=== PATIENT | female | born 1945 | race Caucasian/White ===

== ENCOUNTER 2022-08-05 18:27 | Emergency (ER) | payer OTHER, SELFPAY ==
[2022-08-05 18:37] VITALS: BP 176/128; PULSE 93; O2SAT 99
[2022-08-05 20:35] VITALS: BP 165/96; PULSE 71; RESP 17; O2SAT 94; BMI 17.2
== END 2022-08-06 00:22 | disposition left against medical advice (07) ==
PROVIDERS: Emergency Provider Emergency Medicine
DX: G89.4 Chronic pain syndrome (principal)
CPT/HCPCS: 99281

== ENCOUNTER → 2022-08-28 12:42 | Outpatient (BNVA) | payer OTHER, MEDICAID, SELFPAY | PROVIDERS: Visit Provider Anesthesiology | DX: G89.4 Chronic pain syndrome (principal); T85.610A Breakdown (mechanical) of cranial or spinal infusion catheter, initial encounter; Z96.89 Presence of other specified functional implants | CPT/HCPCS: 99202 ==

== ENCOUNTER 2022-09-26 17:28 | Observation (INO) | payer OTHER, MEDICAID, SELFPAY ==
[2022-09-26] VITALS (7 sets, daily range): BP systolic 157–173; BP diastolic 83–90; PULSE 57–71; RESP 16–18; TEMP 36.2–37.2; O2SAT 95–99; BMI 17.6
--- NOTE | ~2022-09-26 | FL_ITS ---
EXAMINATION: XR BARIUM SWALLOW CLINICAL INFORMATION: Food impaction COMPARISON: None TECHNIQUE: Modified barium swallow with speech pathologist. FINDINGS: Patient only ate consistencies of thin liquid to applesauce. Patient would not take solid food or barium-coated cookie or tablet. There was no evidence of nasopharyngeal reflux or tracheal aspiration. No laryngeal penetration was identified. FLUOROSCOPY TIME: 2.8 minutes DOSE AREA PRODUCT: 2.527 Gy-cm2 (ramos-centimeter squared) FL/FL barium swallow modified IMPRESSION: Limited modified barium swallow as described without evidence of aspiration or laryngeal penetration.
--- NOTE | ~2022-09-26 | FL_ITS ---
EXAMINATION: FL BARIUM SWALLOW CLINICAL INFORMATION: Motility study. COMPARISON: Modified barium swallow of same day. TECHNIQUE: Limited Barium swallow examination is performed using fluoroscopic evaluation in addition to multiple fluoroscopic spot views. The patient is imaged supine and is unable to cooperate with any other physicians due to severe back pain. Fluoroscopy Time: 1.1 minutes. DAP: 2.270 Gycm2. Images: 18. FINDINGS: Patient swallowed thin barium. There is hypomotility of the esophagus. No obstruction is identified with barium reaching the stomach. There are some tertiary contractions noted. It is difficult to evaluate for a stricture without giving a barium tablet or solid material to ingest. FL/FL barium swallow IMPRESSION: Mild dysmotility. Patency of barium to the stomach but unable to determine if there may be a stricture at the gastroesophageal junction.
--- NOTE | 2022-09-26 17:55 | PC.NURSE ---
Pt aox4. Breaths are even and unlabored. HR WNL. Reports esophageal pain after vomiting a cheeseburger yesterday. Pt is unable to swallow a sip of water without any pain. Intermittent vomiting clear liquid. MD aware.
--- OUTSIDE RECORDS SUMMARY | 2022-09-26 19:01 | XMS_ITS | Continuity of Care Document ---
:1945 Author Organization [address], [address] [place] [address]- Care Team Providers Name Role Phone Emir Cardoso DO Primary Care Physician [place] [facility] [place](s): 08/06/22 - 09/05/[address], [address] [place] [address]- Allergies, Adverse Reactions, Alerts Substance Reaction Severity Status sulfADIAZINE Active beta blockers Active Ambien Active Tylenol Itchy Active Adhesive Bandage Active Medications albuterol 0.083% inhalation solution 3 mL = 2.5 mg, Inhalation, Every 6 hours, # 120 each, 0 Refills, Maintenance, 06/11/18 17:38:32 EDT,Solution Start Date: 06/11/18 Status: OrderedAll Day Allergy 10 mg oral tablet 1 tablet = 10 mg, By Mouth, Daily, PRN for allergy symptoms, # 10 tablet, 0 Refills, Maintenance, 05/09/21 11:43:00 EDT, Tablet, Partial fill upon patient request if the prescription is for a schedule II opioid drug. Start Date: 05/09/21 Status: Orderedbaclofen 10 mg oral tablet 10 mg, 1, tablet, By Mouth, 2 times a day, # 270 tablet, Refills 0, Maintenance, 05/09/21 11:41:00 EDT, Partial fill upon patient request if the prescription is for a schedule II opioid drug. Start Date: 05/09/21 Status: Orderedbisacodyl 5 mg oral delayed release tablet 2 tablet = 10 mg, By Mouth, Daily, PRN for constipation, # 20 tablet, 0 Refills, Maintenance, 05/09/21 11:25:00 EDT, EC Tablet, Partial fill upon patient request if the prescription is for a schedule II opioid drug. Start Date: 05/09/21 Status: Orderedbisacodyl 5 mg oral delayed release tablet 2 tablet = 10 mg, By Mouth, Daily, PRN for constipation, # 20 tablet, 0 Refills, Maintenance, 05/09/21 11:41:00 EDT, EC Tablet, Partial fill upon patient request if the prescription is for a schedule II opioid drug. Start Date: 05/09/21 Status: OrderedcloNIDine 0.1 mg oral tablet 0.1 mg, 1, tablet, By Mouth, 2 times a day, # 180 tablet, Refills 0, Maintenance, 05/09/21 11:44:00 EDT, Partial fill upon patient request if the prescription is for a schedule II opioid drug. Start Date: 05/09/21 Status: Orderedfurosemide 40 mg oral tablet 1 tablet = 40 mg, By Mouth, Daily, # 30 tablet, 0 Refills, Maintenance, 09/18/15 9:42:33 EDT, Tablet Start Date: 09/18/15 Status: Orderedibuprofen 600 mg oral tablet 600 mg, 1, tablet, By Mouth, 4 times a day, # 120 tablet, Refills 0, Maintenance, 03/18/21 22:17:00 EDT, Partial fill upon patient request if the prescription is for a schedule II opioid drug. Start Date: 03/18/21 Status: OrderedImitrex 100 mg oral tablet 1 tablet = 100 mg, By Mouth, Daily, PRN for migraine headache, may repeat dose after 2 hours up to amaximum of 2, # 18 tablet, 0 Refills, Maintenance, 03/18/21 22:17:00 EDT, Tablet, Partial fill upon patient request if the prescription is for a sched... Start Date: 03/18/21 Status: Orderedlidocaine 5% topical film 1 patch, Topically, Daily, # 30 patch, 0 Refills, Maintenance, 05/10/21 17:40:00 EDT, Patch, JARRET Goodmanamp; [facility], Please get patient HEAT patch. Partial fill upon patient request if the prescription is for a schedule II opioid drug., 1 patch Topica... Start Date: 05/10/21 Stop Date: 06/09/21 Status: Orderedondansetron 4 mg oral tablet, disintegrating 1 tablet = 4 mg, By Mouth, Once, PRN as needed for nausea/vomiting, 0 Refills, Maintenance, 05/09/2111:44:00 EDT, DIS Tablet, Partial fill upon patient request if the prescription is for a schedule IIopioid drug. Start Date: 05/09/21 Status: OrderedProAir HFA 90 mcg/inh inhalation aerosol with adapter 2, puffs, Inhalation, Every 4 hours, PRN, # 8.5 Gm, Refills 0, Maintenance, 06/11/18 17:48:48 EDT, Aerosol Start Date: 06/11/18 Status: OrderedSensipar 30 mg oral tablet 1 tablet = 30 mg, By Mouth, Daily, # 30 tablet, 0 Refills, Maintenance, 05/09/21 11:44:00 EDT, Tablet, Partial fill upon patient request if the prescription is for a schedule II opioid drug. Start Date: 05/09/21 Status: OrderedtraZODone 50 mg oral tablet 100 mg, 2, tablet, By Mouth, Daily at bedtime, # 30 tablet, Refills 0, Maintenance, 05/09/21 11:44:00 EDT, Partial fill upon patient request if the prescription is for a schedule II opioid drug. Start Date: 05/09/21 Status: OrderedVitamin D3 2000 intl units oral capsule 1 capsule = 2,000 International_Units, By Mouth, Daily, # 60 capsule, 0 Refills, Maintenance, 05/09/21 11:44:00 EDT, Capsule, Partial fill upon patient request if the prescription is for a schedule II opioid drug. Start Date: 05/09/21 Status: Ordered Social History Social History Type Response Tobacco Use: 4 or less cigarettes(le ss than 1/4 pack)/day in last 30 days. Sex Patient Care team information PersonnelName: Emir Cardoso DO Address: Address: [address] [place] [address]
--- OUTSIDE RECORDS SUMMARY | 2022-09-26 19:01 | XMS_ITS | Continuity of Care Document ---
:1945 Author Organization [address], [address] [place] [address]- Care Team Providers Name Role Phone Emir Cardoso DO Primary Care Physician [place] [facility] [facility] [place] [id number] Date(s): 04/10/20 - 05/10/[address], [address] [place] [address]- [facility] Attending Physician: Zain Lozada Admitting Physician: Admtr, Zain Referring Physician: Admtr, Ar8 Allergies, Adverse Reactions, Alerts Substance Reaction Severity Status sulfADIAZINE Active beta blockers Active Ambien Active Adhesive Bandage Active Medications albuterol 0.083% inhalation solution 3 mL = 2.5 mg, Inhalation, Every 6 hours, # 120 each, 0 Refills, Maintenance, 06/11/18 17:38:32 EDT,Solution Start Date: 06/11/18 Status: Orderedaspirin 81 mg oral tablet 1 tablet = 81 mg, By Mouth, Daily, 0 Refills, Maintenance, 09/18/15 9:40:50 Start Date: 09/18/15 Status: Orderedaspirin 81 mg oral tablet 1 tablet = 81 mg, By Mouth, Daily, # 30 tablet, 0 Refills, Maintenance, 03/24/18 0:18:40 EDT, Tablet Start Date: 03/24/18 Status: OrderedBenadryl Children's Allergy 12.5 mg/5 mL oral liquid 5 mL = 12.5 mg, By Mouth, 3 times a day, 0 Refills, Maintenance, 06/11/18 17:40:08 EDT Start Date: 06/11/18 Status: Orderedbisacodyl 5 mg oral delayed release tablet 2 tablet = 10 mg, By Mouth, Daily, PRN for constipation, # 20 tablet, 0 Refills, Maintenance, 06/11/18 17:45:18 EDT, EC Tablet Start Date: 06/11/18 Status: OrderedCarafate 1 gm oral tablet 1 Gm, 1, tablet, By Mouth, 4 times a day, # 56 tablet, Refills 0, Tot. Refills 0, Maintenance, 10/04/19 23:18:34 EST, Print Requisition Start Date: 10/04/19 Stop Date: 10/18/19 Status: OrderedCymbalta Capsule By Mouth, Daily, 0 Refills, Maintenance, 09/18/15 9:41:36 Start Date: 09/18/15 Status: Orderedfurosemide 40 mg oral tablet 1 tablet = 40 mg, By Mouth, Daily, # 30 tablet, 0 Refills, Maintenance, 09/18/15 9:42:33, Tablet Start Date: 09/18/15 Status: OrderedHydroCORTisone 1% In Absorbase 1% ointment 1 application, Topically, 2 times a day, # 25 Gm, 0 Refills, Maintenance, 06/11/18 17:47:16 EDT, Ointment Start Date: 06/11/18 Status: Orderedibuprofen 800 mg oral tablet 1 tablet = 800 mg, By Mouth, 3 times a day, # 90 tablet, 0 Refills, Maintenance, 09/18/15 9:41:17, Tablet Start Date: 09/18/15 Status: OrderedLactulose PRN as needed for constipation, 0 Refills, Maintenance, 09/18/15 9:42:17 Start Date: 09/18/15 Status: OrderedLyrica 200 mg oral capsule 1 capsule = 200 mg, By Mouth, 2 times a day, 0 Refills, Maintenance, 06/11/18 17:47:58 EDT, Capsule Start Date: 06/11/18 Status: Orderedomeprazole 40 mg oral enteric coated capsule 1 capsule = 40 mg, By Mouth, Daily, # 30 capsule, 0 Refills, Maintenance, 10/04/19 23:18:25 EST, EC Capsule Start Date: 10/04/19 Stop Date: 11/03/19 Status: OrderedPantoprazole Daily, 0 Refills, Maintenance, 09/18/15 9:57:53 Start Date: 09/18/15 Status: OrderedProAir HFA 90 mcg/inh inhalation aerosol with adapter 2, puffs, Inhalation, Every 4 hours, PRN, # 8.5 Gm, Refills 0, Maintenance, 06/11/18 17:48:48 EDT, Aerosol Start Date: 06/11/18 Status: OrderedSenna By Mouth, 0 Refills, Maintenance, 09/18/15 9:42:08 Start Date: 09/18/15 Status: OrderedSensipar 90 mg oral tablet 1 tablet = 90 mg, By Mouth, Daily, with food, # 30 tablet, 0 Refills, Maintenance, 06/11/18 17:49:23EDT, Tablet Start Date: 06/11/18 Status: OrderedSingulair 10 mg oral tablet 10 mg, 1, tablet, By Mouth, Daily in PM, # 30 tablet, Refills 0, Maintenance, 06/11/18 17:50:37 EDT Start Date: 06/11/18 Status: OrderedtraZODone 50 mg oral tablet 1.5 tablet = 75 mg, By Mouth, Daily at bedtime, 0 Refills, Maintenance, 09/18/15 9:45:45 Start Date: 09/18/15 Status: OrderedVitamin D3 2000 intl units oral capsule 1 capsule = 2,000 International_Units, By Mouth, Daily, 0 Refills, Maintenance, 06/11/18 17:51:44 EDT Start Date: 06/11/18 Status: OrderedZoloft 25 mg oral tablet 1 tablet = 25 mg, By Mouth, Daily, # 30 tablet, 0 Refills, Maintenance, 06/11/18 17:52:06 EDT, Tablet Start Date: 06/11/18 Status: Ordered Social History Social History Type Response Smoking Status 5-9 cigarettes (between 1/4 to 1/2 pack)/day in last 30 days entered on: 10/04/19 Sex
[2022-09-26 19:08] LABS: MANUAL DIFF FLAG NO
[2022-09-26 19:10] LABS: Basophils Percent Auto 0.5 % (0-2); Eosinophils Absolute Auto 0.1 X10*3/uL (0.0-0.4); Eosinophils Percent Auto 1.2 % (0-4); Hematocrit 39.7 % (37.0-47.0); Hemoglobin 13.9 g/dl (12.0-16.0); Imm Gran Abs Auto 0.02 X10*3/uL (0.00-0.03); Imm Gran Pct Auto 0.3 % (0.0-0.4); Lymphocytes Absolute Auto 1.9 X10*3/uL (1.2-4.9); Lymphocytes Percent Auto 32.1 % (20-40); Mean Corpuscular Hemoglobin 31.3 pg (27.0-33.0); Mean Corpuscular Volume 89.4 fL (80.0-98.0); Mean Platelet Volume 10.3 fL (9.4-12.3); Monocytes Absolute Auto 0.3 X10*3/uL (0.1-1.2); Monocytes Percent Auto 4.8 % (2-11); Neutrophils Absolute Auto 3.6 x10*3/uL (2.0-8.3); Neutrophils Percent Auto 61.1 % (45-73); Platelet Count 198 X10*3/uL (160-400); Red Blood Count 4.44 X10*6/uL (4.20-5.50); Red Cell Distribution Width 12.8 % (11.0-16.0); White Blood Count 5.9 X10*3/uL (4.8-10.8)
--- NOTE | 2022-09-26 19:13 | ED_ITS ---
HPI - General Adult General Chief complaint: General Medical Stated complaint: UNABLE TO EAT/DRINK SINCE CHOKING EPISODE T-1 Time Seen by Provider: 09/26/22 17:45 History of Present Illness HPI narrative: This is a 77-year-old female who last evening was eating a cheeseburger when she felt as though a chunk got stuck in her lower esophagus. Since then the patient has not been able to eat or drink. She states that even when she tries to drink water or soup it comes right back up again. The patient has lingering discomfort in her lower chest. She denies any prior history of food bolus getting stuck or any other for known esophageal disorder. Related Data Home Medications Medication Instructions Recorded Confirmed cetirizine 10 mg tablet (Zyrtec) 10 mg PO DAILY PRN 08/28/22 ibuprofen 600 mg tablet 600 mg PO Q8H PRN 08/28/22 melatonin 5 mg tablet 5 mg PO BEDTIME PRN 08/28/22 Allergies Allergy/AdvReac Type Severity Reaction Status Date / Time adhesive tape [Adhesive Tape] Allergy Severe BLISTERS Unverified 08/28/22 13:09 Beta-Blockers Allergy Intermediate EXACERBATES Unverified 08/28/22 13:09 (Beta-Adrenergic Bloc ASTHMA latex [Latex] Allergy Intermediate RASH Unverified 08/28/22 13:09 Sulfa (Sulfonamide Allergy Unknown UNKNOWN Unverified 08/28/22 13:09 Antibiotics) Review of Systems Review of Systems: As per HPI [facility] Past Medical History Medical History (Updated 09/26/22 @ 20:15 by Abdelrahman Cruz MD) 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 CKD (chronic kidney disease) 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), lumbosacral Gastroesophageal reflux disease Generalized anxiety disorder Hyperparathyroidism Hypovitaminosis Impaired glucose tolerance Lung nodule Major depressive disorder Memory deficit following cerebral infarction Mild persistent asthma Opioid dependence Pancreatic atrophy Poor dentition Presence of intrathecal pump Vascular dementia Social History Social History Smoked in Last 30 Days: No Use of substances other than those prescribed or required for medical reasons: No Advance Directives: No Advance Directives Information Provided: No Physical Exam ED Vital Signs: Vital Signs - 24 hr 09/26/22 17:48 Temperature 99.0 F Pulse Rate 70 Respiratory Rate 16 Blood Pressure 173/84 H Pulse Oximetry 99 Oxygen Delivery Method Room Air BMI result Body Mass Index 17.6 Const Other: Patient comfortable appearing. When she does drink water, it does make a gurgling sound come right back up again General: no acute distress Orientation/consciousness: patient oriented x3 HENMT Head: Yes normal to inspection General nose exam: Normal external nose present Mouth: moist mucous membranes Throat: Yes posterior oropharynx normal, Yes tonsils normal and Yes uvula midline Eyes Eyelids: Yes eyelids normal Conjunctivae: conjunctivae normal Pupils: Equal, round and reactive pupils present Neck Neck: Yes supple Resp Effort & Inspection: normal respiratory effort Auscultation: clear to auscultation bilaterally Cardio Rate: regular rate Rhythm: regular rhythm Heart sounds: S1 normal heart sound present, S2 normal heart sound present, no gallops, no murmurs and no rubs GI Inspection: No distended Palpation (GI): Soft to palpation and nontender Auscultation: normal bowel sounds Skin General skin exam: other (Warm and dry) Neuro General: patient oriented x3 and CN's II-XI intact bilaterally Cranial nerves: Yes Equal, round and reactive pupils present Extrem General: Yes no pedal edema Psych Affect: normal affect Attitude: cooperative Course Course Course Narrative: Patient was given glucagon 1 mg IV, without relief. The case was discussed with Dr. Sommer of Gastroenterology, who recommended trying sublingual nitroglycerin. Patient is to go to endoscopy for removal of the esophageal food bolus. Medical Decision Making Lab Data Result diagrams: 09/26/22 19:02 09/26/22 19:02 Labs: Lab Results 09/26/22 09/26/22 09/26/22 Range/Units 19:02 19:02 19:02 WBC 5.9 (4.8-10.8) X10*3/uL RBC 4.44 (4.20-5.50) X10*6/uL Hgb 13.9 (12.0-16.0) g/dl Hct 39.7 (37.0-47.0) % MCV 89.4 (80.0-98.0) fL MCH 31.3 (27.0-33.0) pg MCHC 35.0 (31.0-35.0) g/dl RDW 12.8 (11.0-16.0) % Plt Count 198 (160-400) X10*3/uL MPV 10.3 (9.4-12.3) fL Immature Gran % (Auto) 0.3 (0.0-0.4) % Neut % (Auto) 61.1 (45-73) % Lymph % (Auto) 32.1 (20-40) % [place] % (Auto) 4.8 (2-11) % Eos % (Auto) 1.2 (0-4) % Baso % (Auto) 0.5 (0-2) % Lymph # (Auto) 1.9 (1.2-4.9) X10*3/uL [place] # (Auto) 0.3 (0.1-1.2) X10*3/uL Eos # (Auto) 0.1 (0.0-0.4) X10*3/uL Baso # (Auto) 0.0 (0.0-0.2) X10*3/uL Abs Immat Gran (auto) 0.02 (0.00-0.03) X10*3/uL Absolute Neuts (auto) 3.6 (2.0-8.3) x10*3/uL Absolute Nucleated RBC 0.000 (0.0-0.012) X10*3/uL Nucleated RBC % (auto) 0.0 (0.0-0.2) /100WBC Sodium 140 (135-145) mmol/L Potassium 4.1 (3.3-5.1) mmol/L Chloride 110 H (96-108) mmol/L Carbon Dioxide 19 L (22-29) mmol/L Anion Gap 15 (12-20) BUN 20 H (9-16) mg/dL Creatinine 0.86 (0.5-1.4) mg/dL Estim Creat Clear Calc 38.6 Estimated GFR > 60 Random Glucose 112 (60-115) mg/dL Calcium 11.4 H (8.4-10.2) mg/dL Total Bilirubin 0.5 (0.0-1.0) mg/dL AST 16 (5-31) U/L ALT 14 (0-31) U/L Alkaline Phosphatase 44 (39-117) U/L Total Protein 6.9 (6.5-8.0) g/dL Albumin 4.1 (3.5-5.0) g/dL COVID-19 (ALFRED) Negative (Negative) COVID-19 Clin Com See Note Discharge Plan Discharge Clinical Impression: Esophageal obstruction due to food impaction Patient Disposition: Still a Patient Prescriptions: No Action cetirizine [Zyrtec] 10 mg tablet 10 mg PO DAILY PRN melatonin 5 mg tablet 5 mg PO BEDTIME PRN ibuprofen 600 mg tablet 600 mg PO Q8H PRN
[2022-09-26 19:25] LABS: COVID-19 Test Negative (Negative); IDNOW Serial# 55D5AD1C
[2022-09-26 19:33] LABS: Alanine Aminotransferase 14 U/L (0-31); Albumin Level 4.1 g/dL (3.5-5.0); Alkaline Phosphatase 44 U/L (39-117); Anion Gap 15 (12-20); Aspartate Amino Transferase 16 U/L (5-31); Bilirubin Total 0.5 mg/dL (0.0-1.0); Blood Urea Nitrogen 20 mg/dL (9-16); Calcium 11.4 mg/dL (8.4-10.2); Carbon Dioxide 19 mmol/L (22-29); Chloride 110 mmol/L (96-108); Creatinine Clr Calc Pharmacy 38.6; Estimated Glomerular Filt Rate > 60; Glucose Random 112 mg/dL (60-115); Potassium 4.1 mmol/L (3.3-5.1); Sodium 140 mmol/L (135-145); Total Protein 6.9 g/dL (6.5-8.0)
--- NOTE | 2022-09-26 20:07 | ECG_ITS ---
Test Reason : PRE OP Blood Pressure : / mmHG Vent. Rate : 066 BPM Atrial Rate : 066 BPM P-R Int : 158 ms QRS Dur : 082 ms QT Int : 368 ms P-R-T Axes : 059 027 064 degrees QTc Int : 385 ms Normal sinus rhythm Normal ECG When compared with ECG of 06-DEC-2010 14:07, T wave amplitude has decreased in Lateral leads Referred By: Abdelrahman Cruz Electronically Signed By:ORI DAVIS MD
[2022-09-26] MEDS: Nitroglycerin 0.4 MG TAB.SUBL SUBLINGUAL (20:14)
--- NOTE | 2022-09-26 20:32 | PC.NURSE ---
patient assisted to commode with 1 assist. she is changed into a hospital gown and belongings secured in a clear bag bedside.
--- NOTE | 2022-09-26 21:04 | PM.GICN ---
History of Present Illness Data of Consult Service Date: 09/26/22 Requesting physician: Abdelrahman Cruz Primary Care Provider: Unknown Physician HPI Reason for consult: food impaction 77 YF [place] [facility] [place] with 1 day hx of dysphagia. Pt stated she was eating a cheeseburger on 09/25/22 around 4:30 pm when she felt as though a chunk got stuck in her lower esophagus.? Since then the patient has not been able to eat or drink.? She states that even when she tries to drink water or soup it comes right back up again.? The patient has lingering discomfort in her lower chest.? Pt admits to a long hx of heartburn and intermittent dysphagia with choking spells for the past few yrs. She takes chewable TUMS as needed for heartburn. She denies having an EGD in the past. She admits to loosing some weight over the past few yrs. Pt admits to smoking 1 pack every 4 days and denies ETOH abuse. Pt lives alone and has adult children who live in the area. 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), lumbosacral Gastroesophageal reflux disease Generalized anxiety disorder Hyperparathyroidism Hypovitaminosis Impaired glucose tolerance Lung nodule Major depressive disorder Memory deficit following cerebral infarction Mild persistent asthma Myocardial infarct Opioid dependence Pancreatic atrophy Poor dentition Presence of intrathecal pump Stroke Vascular dementia Family History Family History (Updated 09/27/22 @ 07:17 by Teri Castelan MD) Other No family history of coronary artery disease Social History Social History Patient Tobacco Use Status: Current everyday Tobacco user Tobacco use type: Cigarette Cigarette Packs Per Day: 0.25 Cigarettes Per Day: 5.0 Years Smoked: 38 Second Hand Smoke Exposure: No service: No Current occupational status: disabled Meds Allergies Allergy/AdvReac Type Severity Reaction Status Date / Time adhesive tape [Adhesive Tape] Allergy Severe BLISTERS Unverified 08/28/22 13:09 Beta-Blockers Allergy Intermediate EXACERBATES Unverified 08/28/22 13:09 (Beta-Adrenergic Bloc ASTHMA latex [Latex] Allergy Intermediate RASH Unverified 08/28/22 13:09 Sulfa (Sulfonamide Allergy Unknown UNKNOWN Unverified 08/28/22 13:09 Antibiotics) Home Medications Medication Instructions Recorded Confirmed Last Taken Type cetirizine 10 mg tablet (Zyrtec) 10 mg PO DAILY PRN Allergy Symptoms 08/28/22 09/28/22 Unknown History ibuprofen 600 mg tablet 600 mg PO Q8H PRN Pain 08/28/22 09/28/22 Unknown History melatonin 5 mg tablet 5 mg PO BEDTIME PRN Insomnia 08/28/22 09/28/22 Unknown History albuterol sulfate 90 mcg/actuation 2 puff inhalation Q6H shortness of 09/28/22 09/28/22 Unknown History aerosol inhaler (Ventolin HFA) breath bisacodyl 5 mg tablet 5 mg PO DAILY PRN Constipation 09/28/22 09/28/22 Unknown History pantoprazole 40 mg tablet,delayed 40 mg PO DAILY@0630 09/28/22 09/28/22 Unknown History release pregabalin 50 mg capsule 50 mg PO BID 09/28/22 09/28/22 Unknown History tizanidine 4 mg capsule 8 mg PO BEDTIME muscle spams 09/28/22 09/28/22 Unknown History tizanidine 4 mg tablet 4 mg PO DAILY muscle spasms 09/28/22 09/28/22 Unknown History Physical Exam Vital Signs: Vital Signs: Last Vital Signs Temp 99.0 F 09/26/22 17:48 Pulse 65 09/26/22 20:14 Resp 16 09/26/22 17:48 BP 173/84 H 09/26/22 20:14 Pulse Ox 99 09/26/22 17:48 O2 Del Method 09/26/22 17:48 BMI result Body Mass Index 17.6 Const: General: no acute distress Nutritional Appearance: underweight Orientation/consciousness: patient oriented x3 Limitations: no limitations HEENT: Head: Yes normal to inspection Ears: hearing grossly normal bilaterally Mouth: Normal oral and palatal mucosa present Eyes: Sclerae: sclerae normal Pupils: Equal, round and reactive pupils present Neck: Neck: Yes normal visual inspection Chest: Chest palpation & inspection: normal inspection of the chest Resp: Effort & Inspection: normal respiratory effort Auscultation: clear to auscultation bilaterally Cardio: Palpation: normal PMI Rate: regular rate Rhythm: regular rhythm Heart sounds: S1 normal heart sound present, S2 normal heart sound present and no murmurs GI: Inspection: Yes other (Pain pump palpable in LLQ (nonfunctional - per patient)) Palpation (GI): Soft to palpation, nontender and No hepatosplenomegaly present Auscultation: normal bowel sounds Rectal Exam - Female: deferred Skin: General skin exam: no rashes or lesions noted Neuro: General: patient oriented x3, gait normal and moves all extremities Cranial nerves: Yes Equal, round and reactive pupils present Psych: Appearance: grossly normal Mental Status: mental status grossly normal Results Labs CBC & Chem 7: 09/27/22 06:15 09/27/22 06:15 Labs: Short CBC 09/26/22 Range/Units 19:02 WBC 5.9 (4.8-10.8) X10*3/uL Hgb 13.9 (12.0-16.0) g/dl Hct 39.7 (37.0-47.0) % Plt Count 198 (160-400) X10*3/uL BMP 09/26/22 19:02 Sodium 140 Potassium 4.1 Chloride 110 H Carbon Dioxide 19 L BUN 20 H Creatinine 0.86 Calcium 11.4 H Liver Function 09/26/22 Range/Units 19:02 Total Bilirubin 0.5 (0.0-1.0) mg/dL AST 16 (5-31) U/L ALT 14 (0-31) U/L Alkaline Phosphatase 44 (39-117) U/L Albumin 4.1 (3.5-5.0) g/dL Assessment and Plan (1) Esophageal obstruction due to food impaction: Status: Acute Plan 77 YF [place] [facility] [place] with 1 day hx of dysphagia due to food impaction x past 24 hrs. Pt can have a stricture, erosive esophagitis or esophageal motility disorder. She has poor dentition which may be playing a role in her symptoms She was given IV glucagon and SL nitrate without change in her symptoms RECOMMENDATIONS: 1. Proceed with urgent upper endoscopy for removal of food bolus. Procedure and potential complications including bleeding, perforation, reaction to anesthetic and aspiration were reviewed with the patient. She would like to proceed with EGD tonight. Procedures Date of Service Date of Service: 09/26/22
--- NOTE | 2022-09-26 21:14 | HO.ANESPROP2 ---
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), lumbosacral Gastroesophageal reflux disease Generalized anxiety disorder Hyperparathyroidism Hypovitaminosis Impaired glucose tolerance Lung nodule Major depressive disorder Memory deficit following cerebral infarction Mild persistent asthma Opioid dependence Pancreatic atrophy Poor dentition Presence of intrathecal pump Vascular dementia Patient : No Family History Family history of problems with anesthesia: No Surgical History History of Problems with Anesthesia: No Social History Social History Smoked in Last 30 Days: No Use of substances other than those prescribed or required for medical reasons: No Advance Directives: No Advance Directives Information Provided: No Patient : No Meds Allergies Allergy/AdvReac Type Severity Reaction Status Date / Time adhesive tape [Adhesive Tape] Allergy Severe BLISTERS Unverified 08/28/22 13:09 Beta-Blockers Allergy Intermediate EXACERBATES Unverified 08/28/22 13:09 (Beta-Adrenergic Bloc ASTHMA latex [Latex] Allergy Intermediate RASH Unverified 08/28/22 13:09 Sulfa (Sulfonamide Allergy Unknown UNKNOWN Unverified 08/28/22 13:09 Antibiotics) Home Medications Medication Instructions Recorded Confirmed Last Taken Type cetirizine 10 mg tablet (Zyrtec) 10 mg PO DAILY PRN 08/28/22 Unknown History ibuprofen 600 mg tablet 600 mg PO Q8H PRN 08/28/22 Unknown History melatonin 5 mg tablet 5 mg PO BEDTIME PRN 08/28/22 Unknown History Exam Exam Date and Time: September 26, [id number] Height,Weight and Vital Signs: Height 5 ft 3 in Weight 45.359 kg Last Vital Signs Temp 99.0 F 09/26/22 17:48 Pulse 65 09/26/22 20:14 Resp 16 09/26/22 17:48 BP 173/84 H 09/26/22 20:14 Pulse Ox 99 09/26/22 17:48 O2 Del Method 09/26/22 17:48 Pertinent Lab Results Pertinent Lab Results: Laboratory Tests 09/26/22 09/26/22 09/26/22 19:02 19:02 19:02 WBC 5.9 RBC 4.44 Hgb 13.9 Hct 39.7 MCV 89.4 MCH 31.3 MCHC 35.0 RDW 12.8 Plt Count 198 MPV 10.3 Immature Gran % (Auto) 0.3 Neut % (Auto) 61.1 Lymph % (Auto) 32.1 [place] % (Auto) 4.8 Eos % (Auto) 1.2 Baso % (Auto) 0.5 Lymph # (Auto) 1.9 [place] # (Auto) 0.3 Eos # (Auto) 0.1 Baso # (Auto) 0.0 Abs Immat Gran (auto) 0.02 Absolute Neuts (auto) 3.6 Absolute Nucleated RBC 0.000 Nucleated RBC % (auto) 0.0 Sodium 140 Potassium 4.1 Chloride 110 H Carbon Dioxide 19 L Anion Gap 15 BUN 20 H Creatinine 0.86 Estim Creat Clear Calc 38.6 Estimated GFR > 60 Random Glucose 112 Calcium 11.4 H Total Bilirubin 0.5 AST 16 ALT 14 Alkaline Phosphatase 44 Total Protein 6.9 Albumin 4.1 COVID-19 (ALFRED) Negative COVID-19 Clin Com See Note Airway Mallampati Class: II TM Dist: >3cm Neck ROM: Full Denture: Upper Loose/Missing/Broken Teeth: Lower Heart: RRR Lungs: CTA Assessment and Plan Final Anesthetic Review Family History of Problems with Anesthesia: No History of Problems with Anesthesia: No ASA Class: III and Emergency Final Preanesthetic Review: Meds/Allgs Chart Reviewed, Consent Obtained/Reviewed and Anes Risks/Benef Reviewed Patient Risk: Intermediate Procedure Risk: Low Anesthetic Plan Anesthetic Plan: GA Disposition: Standard PACU
--- NOTE | 2022-09-26 21:23 | P.BOP_ITS ---
Brief Operative Note Date of Service: 09/26/22 Pre-op diagnosis: Dysphagia, food impaction Post-op diagnosis: other (esophageal food bolus, esophageal nodule) Procedure: UPPER GI ENDOSCOPY WITH BIOPSIES AND FOREIGN BODY REMOVAL. Surgeon: Rocco Sommer MD Anesthesia: GETA (Dr Joe) Was an Senior Analyst Market Intelligence used for this Procedure?: Yes Senior Analyst Market Intelligence: Nasreen Layton Estimated blood loss (mL): 0 Pathology: other ( A- Esophageal nodule) Condition: stable Disposition: PACU
--- NOTE | 2022-09-26 21:25 | W.PM.OPN ---
Operative Note Operative Note Date of Service: 09/26/22 Narrative: Pre-op diagnosis: Dysphagia, food impaction Post-op diagnosis:?other (esophageal food bolus, esophageal nodule) Surgeon: Rocco Sommer MD Anesthesia:?GETA (Dr Joe) FLEXIBLE TRANSORAL UPPER GASTROINTESTINAL ENDOSCOPY WITH BIOPSIES Consent: Indications for the procedure and potential complications of bleeding, perforation, reaction to medications and missed diagnosis were discussed with the patient and informed consent was obtained. Instrument: Olympus GIF H 190 mid size upper endoscope Monitoring: Vital signs and clinical assessment, continuous EKG monitoring, Pulse oximetry, Carbon Dioxide monitoring and blood pressure monitoring were done throughout the procedure. Procedure: The patient was placed in the left lateral decubitis position and pre-procedure medications were administered and a bite block was placed. The endoscope was inserted into the mouth and advanced under direct vision to the third part of duodenum. A careful inspection was made as the upper endoscope was withdrawn including a retroflexed examination of the proximal stomach; Findings and interventions are described below. Findings: Larynx: ET tube in place Esophagus: Large food bolus in the mid to distal esophagus - removed piecemeal with a snare, tri- pronged polyp grabber and a Ruiz Net. Remaining food bolus was pushed into the stomach with the endoscope. Tortuous esophagus with decreased peristalsis suggesting esophageal motility disorder. A 1 cms benign-appearing polypoidal nodule at 20 cms - biopsied. GE junction at 40 cms. Distal esophageal mucosa appeared irritated due to prolonged impaction with food bolus Stomach: Mild gastric erythema. Grade 2 flap valve on retroflexed examination of the cardia. Duodenum: Normal bulb and descending duodenum Intervention: Biopsies as noted above Impression and Post Procedure Diagnosis: Endoscopy Findings: ESOPHAGUS: Large food bolus in the mid to distal esophagus - removed piecemeal with a snare, tri- pronged polyp grabber and a Ruiz Net. Remaining food bolus was pushed into the stomach with the endoscope. Tortuous esophagus with decreased peristalsis suggesting esophageal motility disorder. GE junction at 40 cms. Distal esophageal mucosa appeared irritated due to prolonged impaction with food bolus A 1 cms benign-appearing polypoidal nodule at 20 cms - biopsied. Plan: Admit for overnight observation. Schedule a barium swallow in the am to rule out esophageal motility disorder. Above findings were reviewed with the patient and she was advised to chew her food well and drink sips of fluids with her meals. If she has continuing dysphagia, repeat EGD with dilation can be performed. ADDENDUM: 09/27/22 BARIUM SWALLOW SHOWED: Patient swallowed thin barium. There is hypomotility of the esophagus. No obstruction is identified with barium reaching the stomach. There are some tertiary contractions noted. It is difficult to evaluate for a stricture without giving a barium tablet or solid material to ingest.
--- NOTE | 2022-09-26 23:26 | PM.IMHP ---
History of Present Illness Date of Service: 09/26/22 Chief Complaint: difficulty swallowing 77-year-old female with past medical history of chronic pain syndrome, who comes in from home with complaints of difficulty swallowing. Patient reports that she had a corner of a burger about 2 days ago and after that she had nausea, vomiting, and difficulty swallowing. Patient reports that she has had difficulty swallowing for a while both with liquids and and solids. She denies no difficulty swallowing, has had chronic cough,. She reports pain on swallowing at this time. She denies any abdominal pain no urinary symptoms and no lower extremity edema. 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), lumbosacral Gastroesophageal reflux disease Generalized anxiety disorder Hyperparathyroidism Hypovitaminosis Impaired glucose tolerance Lung nodule Major depressive disorder Memory deficit following cerebral infarction Mild persistent asthma Myocardial infarct Opioid dependence Pancreatic atrophy Poor dentition Presence of intrathecal pump Stroke Vascular dementia Family History (Updated 09/27/22 @ 07:17 by Teri Castelan MD) Other No family history of coronary artery disease Social History Patient Tobacco Use Status: Current everyday Tobacco user Tobacco use type: Cigarette Cigarette Packs Per Day: 0.25 Cigarettes Per Day: 5.0 Years Smoked: 38 Smoked in Last 30 Days: Yes Patient Interested in Nicotine Replacement: No Patient Given Instructions on How to Stop Smoking: Yes Date Education Initiated: 09/27/22 Second Hand Smoke Exposure: No Use of substances other than those prescribed or required for medical reasons: No Advance Directives: No Advance Directives Information Provided: No Patient : No Meds Allergies Allergy/AdvReac Type Severity Reaction Status Date / Time adhesive tape [Adhesive Tape] Allergy Severe BLISTERS Unverified 08/28/22 13:09 Beta-Blockers Allergy Intermediate EXACERBATES Unverified 08/28/22 13:09 (Beta-Adrenergic Bloc ASTHMA latex [Latex] Allergy Intermediate RASH Unverified 08/28/22 13:09 Sulfa (Sulfonamide Allergy Unknown UNKNOWN Unverified 08/28/22 13:09 Antibiotics) Active Medications: Current Medications Acetaminophen (Acetaminophen Supp 650 Mg Supp.Rect) 650 mg [place] Q6H PRN PRN Reason: Pain, Mild (Pain Scale 1-3) Docusate Sodium (Docusate Sodium 100 Mg Capsule) 100 mg PO DAILY PRN PRN Reason: Constipation Heparin Sodium (Porcine) (Heparin Sodium,Porcine 5,000 Unit/Ml Vial) 5,000 unit SUBCUT Q12H NOHELIA Ondansetron HCl (Ondansetron Hcl 4 Mg/2 Ml Vial) 4 mg IVPUSH Q8H PRN PRN Reason: Nausea and Vomiting Sodium Chloride (0.9 % Sodium Chloride Flush 3 Ml Syringe) 3 ml IVFLUSH QSHIFT NOHELIA Home Medications Medication Instructions Recorded Confirmed Last Taken Type cetirizine 10 mg tablet (Zyrtec) 10 mg PO DAILY PRN 08/28/22 Unknown History ibuprofen 600 mg tablet 600 mg PO Q8H PRN 08/28/22 Unknown History melatonin 5 mg tablet 5 mg PO BEDTIME PRN 08/28/22 Unknown History Physical Exam Vital Signs and Narrative: Vital Signs: Last Vital Signs Temp 98.8 F 09/26/22 21:34 Pulse 71 09/26/22 21:34 Resp 16 09/26/22 21:34 BP 157/86 H 09/26/22 21:34 Pulse Ox 97 09/26/22 21:34 O2 Del Method 09/26/22 21:34 BMI result Body Mass Index 17.6 Results Labs CBC and Chem 7: 09/26/22 19:02 09/26/22 19:02 Labs: Laboratory Results - last 24 hr 09/26/22 09/26/22 09/26/22 19:02 19:02 19:02 MCV 89.4 MCH 31.3 MCHC 35.0 RDW 12.8 Plt Count 198 MPV 10.3 Immature Gran % (Auto) 0.3 Neut % (Auto) 61.1 Lymph % (Auto) 32.1 [place] % (Auto) 4.8 Eos % (Auto) 1.2 Baso % (Auto) 0.5 Lymph # (Auto) 1.9 [place] # (Auto) 0.3 Eos # (Auto) 0.1 Baso # (Auto) 0.0 Abs Immat Gran (auto) 0.02 Absolute Neuts (auto) 3.6 Absolute Nucleated RBC 0.000 Nucleated RBC % (auto) 0.0 Anion Gap 15 Estim Creat Clear Calc 38.6 Estimated GFR > 60 Random Glucose 112 Calcium 11.4 H Total Bilirubin 0.5 AST 16 ALT 14 Alkaline Phosphatase 44 Total Protein 6.9 Albumin 4.1 COVID-19 (ALFRED) Negative COVID-19 Clin Com See Note Assessment and Plan (1) Food impaction of esophagus: Status: Acute (2) Dysphagia: Status: Acute Plan [age]-year-old female with past medical history of chronic pain syndrome presents to the hospital with complaints of difficulty swallowing, and nausea vomiting found to have food impaction # food impaction in the esophagus - likely secondary to dysmotility - taken to OR- found to have significant amount of food boluses in the esophagus - no evidence of structural issues per GI - will consult speech for barium swallow # dysphagia - with liquids and solids - barium swallow ordered # chronic pain - continue home pain medications DVT prophylaxis: Early ambulation Quality Stroke Does the patient have a stroke diagnosis?: No VTE Prior VTE?: No VTE Risk Level:: Medical - moderate - high VTE Device Contraindication: Treatment Not Indicated VTE Drug Contraindication: N/A - Med Ordered
[2022-09-27] VITALS (8 sets, daily range): BP systolic 121–161; BP diastolic 62–84; PULSE 60–78; RESP 16–19; TEMP 36.3–37.6; O2SAT 97–100; BMI 17.6
[2022-09-27] MEDS: Heparin Sodium,Porcine 5,000 UNIT/ML VIAL 5000 UNIT SUBCUT ×3 (00:03→21:46)
[2022-09-27] MEDS: 0.9 % Sodium Chloride Flush 3 ML SYRINGE IVFLUSH ×4 (00:03→21:47)
[2022-09-27] MEDS: Pantoprazole Sodium 40 MG/10 ML VIAL IVPUSH ×2 (06:22→15:45)
[2022-09-27 07:09] LABS: MANUAL DIFF FLAG NO
[2022-09-27 07:17] LABS: Basophils Percent Auto 0.2 % (0-2); Eosinophils Percent Auto 0.2 % (0-4); Hematocrit 36.6 % (37.0-47.0); Hemoglobin 12.5 g/dl (12.0-16.0); Imm Gran Abs Auto 0.02 X10*3/uL (0.00-0.03); Imm Gran Pct Auto 0.4 % (0.0-0.4); Lymphocytes Absolute Auto 0.9 X10*3/uL (1.2-4.9); Lymphocytes Percent Auto 19.5 % (20-40); Mean Corpuscular HGB Conc 34.2 g/dl (31.0-35.0); Mean Corpuscular Hemoglobin 30.9 pg (27.0-33.0); Mean Corpuscular Volume 90.6 fL (80.0-98.0); Mean Platelet Volume 10.8 fL (9.4-12.3); Monocytes Absolute Auto 0.1 X10*3/uL (0.1-1.2); Monocytes Percent Auto 1.1 % (2-11); Neutrophils Absolute Auto 3.6 x10*3/uL (2.0-8.3); Neutrophils Percent Auto 78.6 % (45-73); Platelet Count 188 X10*3/uL (160-400); Red Blood Count 4.04 X10*6/uL (4.20-5.50); Red Cell Distribution Width 12.9 % (11.0-16.0); White Blood Count 4.5 X10*3/uL (4.8-10.8)
[2022-09-27 07:36] LABS: Anion Gap 15 (12-20); Blood Urea Nitrogen 22 mg/dL (9-16); Calcium 10.5 mg/dL (8.4-10.2); Carbon Dioxide 18 mmol/L (22-29); Chloride 111 mmol/L (96-108); Creatinine Clr Calc Pharmacy 40.5; Estimated Glomerular Filt Rate > 60; Glucose Random 131 mg/dL (60-115); Potassium 4.6 mmol/L (3.3-5.1); Sodium 139 mmol/L (135-145)
--- NOTE | 2022-09-27 09:46 | MHC.CM.PN ---
PT REPORTS SHE LIVES ALONE AND IS INDEPENDENT WITH PERSONAL CARE PT REPORTS SHE HAS A RETORT FIREMAN ONE DAY PER WEEK THROUGH [employer] SHE USES A WALKER, WHEELCHAIR, AND INHALER AT HOME SHE COMPLETED A HCP TODAY NAMING HER SONS, MADALYN AND ALIRIO, HER AGENTS PCP: DR RIVERA OBSERVATION NOTICE DELIVERED CURRENT DC PLAN IS HOME WITH RESUMPTION OF RETORT FIREMAN SERVICES SON TO TRANSPORT
--- NOTE | 2022-09-27 13:26 | HO.POSTANES ---
Post Anesthesia Evaluation Post Anesthesia Evaluation Vital Signs: Vital Signs Temp Pulse Resp BP Pulse Ox O2 Del Method 09/27/22 11:37 99.7 F 65 17 134/75 100 Room Air 09/27/22 08:00 97.5 F 64 19 128/82 97 Room Air 09/27/22 04:00 97.8 F 75 18 122/72 98 Room Air Anesthesia: General Endotracheal-GETA Mental Status: Awake Pain Control: Satisfactory Nausea/Vomiting: None Hydration: Adequate Anesthesia-Related Issues: No Anes. Related Issues
--- NOTE | 2022-09-27 15:58 | MHC.SL.IMP ---
Date of Plan of Treatment: 09/27/22 Onset of Symptoms/Illness: 09/26/22 Date Treatment Started: 09/27/22 Admitting Diagnosis: Food impaction of esophagus, Dysphagia Primary Speech & Language Diagnosis: R13.14 Pharyngoesophageal Phase Dysphagia Reason for Today's Visit: 55231 Modified Barium Swallow Study Pre-evaluation Dietary Consistencies: NPO Pre-evaluation Liquid Consistency: NPO Pre-evaluation Medication Administration: NPO Medical History: Modified Barium Swallow Study Fluoroscopic Evaluation of Swallowing Function CPT Code 88054 Evaluation Year: 2021 Reason for Study: Difficulty swallowing Referring Physician: Teri Castelan MD Evaluating Clinician: Miguelina Aguayo MA, CCC-FINANCE MANAGER Study Number: 1 Patient Name: Kristina Bernal Status: Inpatient, Stretcher Age: 77 Gender: Female MEDICAL HISTORY: Year of Onset or Diagnosis: 2021 Comorbidities: 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 CKD (chronic kidney disease) 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), lumbosacral Gastroesophageal reflux disease Generalized anxiety disorder Hyperparathyroidism Hypovitaminosis Impaired glucose tolerance Lung nodule Major depressive disorder Memory deficit following cerebral infarction Mild persistent asthma Myocardial infarct Opioid dependence Pancreatic atrophy Poor dentition Presence of intrathecal pump Stroke Vascular dementia Current (pre-evaluation) Intake/Diet: Route: NPO pending MBSS Pre-Study Functional Oral Intake Scale (FOIS): 1- No oral intake Pain: Chronic/Ongoing reported at time of study, Throat, rated 10 on scale 0-10 SUBJECTIVE: Pt is a 77 year old female brought to the ED on 09/26 for dysphagia. Pt was eating a cheeseburger and felt as though a chunk got stuck in her lower esophagus the night before. Pt reported that since then, she has not been able to eat or drink. Even when she tried water or soup, it came right back up. Pt reported a lingering discomfort in lower chest. Pt admitted to a long history of heartburn and intermittent dysphagia with choking spells the past few years. Pt reported to this FINANCE MANAGER that when cheeseburger felt stuck, the pain was ?20 out of 10.? Per RN 09/26, pt reported esophageal pain after vomiting cheeseburger yesterday. Pt was reportedly unable to swallow sip of water without any pain and was intermittently vomiting clear liquid. Pt was seen by Dr. Sommer during this hospitalization and had an upper GI endoscopy with biopsies and foreign body removal. Pt was recommended a barium swallow in the morning to rule out esophageal motility disorder. FINDINGS OF UPPER ENDOSCOPY 09/26: ?Findings: Larynx:? ET tube in place Esophagus: Large food bolus in the mid to distal esophagus - removed piecemeal with a snare, tri- pronged polyp grabber and a Ruiz Net. Remaining food bolus was pushed into the stomach with the endoscope. Tortuous esophagus with decreased peristalsis suggesting esophageal motility disorder. A 1 cms benign-appearing polypoidal nodule at 20 cms - biopsied. GE junction at 40 cms. Distal esophageal mucosa appeared irritated due to prolonged impaction with food bolus Stomach: Mild gastric erythema. Grade 2 flap valve on retroflexed examination of the cardia. Duodenum:? Normal bulb and descending duodenum Intervention: Biopsies as noted above Impression and Post Procedure Diagnosis: Endoscopy Findings: ESOPHAGUS:? Large food bolus in the mid to distal esophagus - removed piecemeal with a snare, tri- pronged polyp grabber and a Ruiz Net. Remaining food bolus was pushed into the stomach with the endoscope. Tortuous esophagus with decreased peristalsis suggesting esophageal motility disorder. GE junction at 40 cms. Distal esophageal mucosa appeared irritated due to prolonged impaction with food bolus A 1 cms benign-appearing polypoidal nodule at 20 cms - biopsied.? Oral Motor Exam Facial Symmetry: Symmetrical Oral-Facial Teeth Characteristics: Edentulous Oral-Facial Lip Pucker Description: Normal Oral-Facial Puff Cheeks Description: Normal Tongue Size: Normal Tongue Excursion Description: Normal Tongue Range of Movement Description: Normal Tongue Speed of Movement Description: Normal Tongue Strength of Movement (against opposing pressure): Normal Tongue Movement Characteristics: Normal/Absent Is patient able to manage secretions?: Yes Food and Liquid Trials: Oral Impairment: Lip Closure: Did not test Oral Impairment: Tongue Control During Bolus Hold: 2=Posterior escape of less than half of bolus Oral Impairment: Bolus Preparation/Mastication: Did not test Oral Impairment: Bolus Transport/Lingual Motion: 1= Delayed initiation of tongue motion Oral Impairment: Oral Residue: 2=Residue collection on oral structures Oral Impairment:Initiation of Pharyngeal Swallow: 3=Bolus head in pyriforms Pharyngeal Impairment: Soft Palate Elevation: 0=No bolus between soft palate (SP)/pharyngeal wall (PW) Pharyngeal Impairment: Laryngeal Elevation: 1=Partial thyroid cartilage/arytenoids to epiglottic petiole movement Pharyngeal Impairment: Anterior Hyoid Excursion: 1=Partial anterior movement Pharyngeal Impairment: Epiglottic Movement: 0=Complete inversion Pharyngeal Impairment: Laryngeal Vestibular Closure:: 0=Complete: no air/contrast in laryngeal vestibule Pharyngeal Impairment: Pharyngeal Stripping Wave: 1=Present: diminished Pharyngeal Impairment: Pharyngeal Contraction: Did not test Pharyngeal Impairment: Pharyngoesophageal Segment Openin=Partial distention/partial duration: partial obstruction of flow Pharyngeal Impairment: Tongue Base (TB) Retraction: 2=Narrow column of contrast/air between TB and posterior PW Pharyngeal Impairment: Pharyngeal Residue: 1=Trace residue within or on pharyngeal structures Pharyngeal Impairment: Esophageal Clearance Upright Position: Did not test Impressions and Recommendations Clinical Observations: OBJECTIVE: Time-out: performed at 11:15 Evaluation Start: 11:00; Stop: 11:07 Patient Positioning: Seated 70-90 degrees Viewing Planes: LATERAL ONLY Contrast: MBSImP? Standardized Protocol using commercially prepared, standardized Barium viscosities, including: Varibar? THIN LIQUID (40% w/v, <15 cps) , Varibar? NECTAR (40% w/v, <150-450 cps) , Varibar? THIN HONEY (40% w/v, <800-1800 cps) MBSImP ID[id number] [facility]: Lip closure for intraoral bolus containment could not be assessed due to logistical reasons not related to physiologic impairment. Tongue control during bolus hold resulted in posterior escape of less than half of the bolus. Bolus preparation and mastication received the highest impairment score; solid not given due to patient safety concerns related to oral impairment. Bolus transport/lingual motion demonstrated delayed initiation of tongue motion. Oral residue was a collection on oral structures. Initiation of the pharyngeal swallow occurred when the bolus head was in the pyriform sinuses. Soft palate elevation resulted in no bolus between the soft palate and the pharyngeal wall. Laryngeal elevation was decreased, with partial superior movement of the thyroid cartilage/partial approximation of the arytenoids to the epiglottic petiole. Anterior hyoid excursion demonstrated partial anterior movement. Epiglottic movement resulted in complete inversion. Laryngeal vestibular closure was complete, as indicated by no air or contrast within the laryngeal vestibule at the height of the swallow. Pharyngeal stripping wave was present, but diminished. Pharyngeal contraction could not be determined due to logistical reasons not related to physiologic impairment. Pharyngoesophageal segment opening demonstrated partial distension/partial duration, with partial obstruction of bolus flow. Tongue base retraction allowed a narrow column of contrast or air between the retracted tongue base and the posterior pharyngeal wall. Pharyngeal residue was a trace within or on pharyngeal structures. Esophageal clearance in the upright position could not be assessed due to logistical reasons not related to physiologic impairment. Oral Impairment Score: 11 (absence of score, component 1) Pharyngeal Impairment Score: 6 (absence of score, component 13) Esophageal Impairment Score: --- (absence of score, component 17) Laryngeal Penetration and Aspiration: Neither penetration nor aspiration was observed in today's study with Honey-thick, [place]-thick, Thin. ASSESSMENT: Clinician Assessment: This exam was conducted by a multidisciplinary team, which included a speech pathologist, radiologist, and ct technician. Pt was seated upright at 90 degrees for lateral view only. Pt trialed the following liquid and solid consistencies: thin liquid barium, nectar thick liquid barium, honey thick liquid barium, and pureed solid (mixture applesauce with barium paste). Pt refused chicken salad trials, stating that she ?does not eat chicken? and ?will vomit if she tries. Pt was given small bite size piece of shortbread cookie, which pt bit in half. Pt then held bolus anteriorly and spit it out despite cues to chew. Pt stated that, ?It is too hard to chew.? Pt only accepted trials of semi-solid puree and liquids. There was premature posterior escape of bolus, which collected in the valleculae and pyriform sinuses prior to productive tongue movement. Posterior lingual movement for transport of bolus was delayed. There was mild diffuse oral residue in the floor of mouth, palate, and tongue, which did subsequently clear. There was no nasopharyngeal reflux. Laryngeal elevation was incomplete with incomplete anterior hyoid excursion. Epiglottic inversion was complete. Laryngeal vestibular closure was complete. No evidence of aspiration or penetration with solids and liquids. There as trace pharyngeal residue in the valleculae and pyriform sinuses intermittently which subsequently cleared. Liquid Intake Recommendation: Thin Liquid Intake Strategies: Small Sips Dietary Recommendations: Pureed (NDD1) Medication Administration: Crushed with Puree Please contact the pharmacy regarding appropriate crushable or liquid drug formulations that are available whenever modified delivery is recommended. Compensatory Strategies Recommended: Sitting Upright (90 deg), Double Swallow, Small Bites and Sips, Alternate Liquids/Solids, Rate of Ingestion Change, Avoid Specific Foods Supervision during eating and or drinking: Intermittent Supervision Recommended Treatments: Compens. Strategy Educat. Recommendation for Speech Therapy: Inpatient Speech Therapy PLAN: Intake Recommendations: Route: PO Diet Grade: Puree Liquid Consistencies: Thin Post-Study Functional Oral Intake Scale (FOIS): 5- Total oral intake of multiple consistencies requiring special preparation Pt is edentulous and apart from pureed trials, pt refused other solid consistencies presented during this exam. Pt tolerated PUREED solids. There is potential for upgrade to possibly ground consistency should pt be more willing to participate in trials. Recommend avoid hard and tough to chew solids given edentulous state and upper endoscopy showing food impaction. Recommend pt to take small bites/sips, one bite/sip at a time, clear oral cavity before taking more bites/sips, upright 90 degree position while eating/drinking and for at least 45 minutes afterwards. Recommend continue workup w/ G.I. Suggested Referrals: The patient might benefit from a referral to: Gastroenterology Indication for Referral: Recommend continue workup with G.I. Dr. Sommer recommended pt have barium swallow to rule in/out esophageal motility disorder. Therapy Recommendations: Therapy will be continued Prognosis for Improvement: The prognosis for the patient to meet nutritional needs by mouth is good based on degree of impairment. Emergency Room Doctor Goals: ? The patient will tolerate the least restrictive diet with a safe/efficient swallow to maintain adequate nutrition and hydration. ? The patient and/or family will participate in further education for swallowing goals. Short Term Goals: ? Diet - The patient will tolerate a pureed diet with thin liquids without signs or symptoms of penetration/aspiration 100% of the time. - The patient will participate in therapeutic PO trials with the FINANCE MANAGER. ? Guidelines - The patient will comply with/recall the following guidelines/strategies 100% of the time with minimal cuing: Bolus Volume Change, Rate of Ingestion Change, Additional Swallow(s) per Bolus. ? Education - The patient, family, caregiver will verbalize/demonstrate understanding of the results of this evaluation, the above recommendations, and the swallowing guidelines. Clinician - Supplemental, Miscellaneous Communication: It is important to note MBSS objective studies are snapshots in time and Patient function might vary with factors such as time of day or concomitant medical conditions. For this reason, the final treatment plan for this patient should rest with their medical care team. Additional recommendations should be considered with the totality of the Patient in mind. Thank for the opportunity to participate in the care of this patient. If you have any questions about the content of this report, please contact the [facility] at [facility]. Education: Education regarding findings from today's study and plans for therapy were provided to Patient only through Verbal Instruction. Floor Coverings Salesperson Clinician/Clinical Fellow: No Supervisory Statement: N/A Speech Language Pathologist: Miguelina Aguayo M.A., CCC-FINANCE MANAGER
--- NOTE | 2022-09-27 16:12 | P.PNIM_ITS ---
Subjective Subjective Date of Service: 09/28/22 Interval History: difficulty swallowing Review of Systems patient has some soreness after the EGDprocedure, denies any chest pain or shortness of breath or abdominal pain nausea or vomiting. Physical Exam Vital Signs: Vital Signs: Last Vital Signs Temp 97.5 F 09/27/22 15:30 Pulse 60 09/27/22 15:30 Resp 16 09/27/22 15:30 BP 161/79 H 09/27/22 15:30 Pulse Ox 98 09/27/22 15:30 O2 Del Method 09/27/22 15:30 BMI result Body Mass Index 17.6 Appearance: Alert.? Oriented X3.? not in distress.? some throat soarness cvs: rrr, [id number] , no murmur res: clear to auscultation ,no rhonchii or wheezing abd: no rebound or guarding ,nt, bs present. ext pulses present , no cyanosis . neuro: axo3 , nonfocal. Objective Data Active Medications Acetaminophen (Acetaminophen Supp 650 Mg Supp.Rect) 650 mg NV Q6H PRN PRN Reason: Pain, Mild (Pain Scale 1-3) Docusate Sodium (Docusate Sodium 100 Mg Capsule) 100 mg PO DAILY PRN PRN Reason: Constipation Heparin Sodium (Porcine) (Heparin Sodium,Porcine 5,000 Unit/Ml Vial) 5,000 unit SUBCUT Q12H [facility] Last Admin: 09/27/22 00:07 Dose: 5,000 unit Documented By: TONY Ondansetron HCl (Ondansetron Hcl 4 Mg/2 Ml Vial) 4 mg IVPUSH Q8H PRN PRN Reason: Nausea and Vomiting Pantoprazole Sodium (Pantoprazole Sodium 40 Mg/10 Ml Vial) 40 mg IVPUSH BID@0630,1630 [facility] Last Admin: 09/27/22 15:45 Dose: 40 mg Documented By: MIGUEL Sodium Chloride (0.9 % Sodium Chloride Flush 3 Ml Syringe) 3 ml IVFLUSH QSHIFT [facility] Last Admin: 09/27/22 15:45 Dose: 3 ml Documented By: MIGEUL Labs CBC & Chem 7: 09/27/22 06:15 09/27/22 06:15 Labs: Laboratory Results - last 24 hr 09/26/22 09/26/22 09/26/22 19:02 19:02 19:02 MCV 89.4 MCH 31.3 MCHC 35.0 RDW 12.8 Plt Count 198 MPV 10.3 Immature Gran % (Auto) 0.3 Neut % (Auto) 61.1 Lymph % (Auto) 32.1 [place] % (Auto) 4.8 Eos % (Auto) 1.2 Baso % (Auto) 0.5 Lymph # (Auto) 1.9 [place] # (Auto) 0.3 Eos # (Auto) 0.1 Baso # (Auto) 0.0 Abs Immat Gran (auto) 0.02 Absolute Neuts (auto) 3.6 Absolute Nucleated RBC 0.000 Nucleated RBC % (auto) 0.0 Anion Gap 15 Estim Creat Clear Calc 38.6 Estimated GFR > 60 Random Glucose 112 Calcium 11.4 H Total Bilirubin 0.5 AST 16 ALT 14 Alkaline Phosphatase 44 Total Protein 6.9 Albumin 4.1 COVID-19 (ALFRED) Negative COVID-19 Clin Com See Note 09/27/22 09/27/22 06:15 06:15 MCV 90.6 MCH 30.9 MCHC 34.2 RDW 12.9 Plt Count 188 MPV 10.8 Immature Gran % (Auto) 0.4 Neut % (Auto) 78.6 H Lymph % (Auto) 19.5 L [place] % (Auto) 1.1 L Eos % (Auto) 0.2 Baso % (Auto) 0.2 Lymph # (Auto) 0.9 L [place] # (Auto) 0.1 Eos # (Auto) 0.0 Baso # (Auto) 0.0 Abs Immat Gran (auto) 0.02 Absolute Neuts (auto) 3.6 Absolute Nucleated RBC 0.000 Nucleated RBC % (auto) 0.0 Anion Gap 15 Estim Creat Clear Calc 40.5 Estimated GFR > 60 Random Glucose 131 H Calcium 10.5 H D Total Bilirubin AST ALT Alkaline Phosphatase Total Protein Albumin COVID-19 (ALFRED) COVID-19 Clin Com Assessment and Plan (1) Dysphagia: Status: Acute (2) Food impaction of esophagus: Status: Acute Plan 77-year-old female with past medical history of chronic pain syndrome presents to the hospital with complaints of difficulty swallowing, and nausea vomiting found to have food impaction # food impaction in the esophagus - likely secondary to dysmotility - taken to OR- found to have significant amount of food boluses in the esophagus, barium swallow -for motality issues. s/p egd-Large food bolus in the mid to distal esophagus-removed will add ppi # dysphagia - with liquids and solids - barium swallow ordered # chronic pain - continue home pain medications DVT prophylaxis:? Early ambulation inpatient need : Motility studies, also need to monitor if tolerate food so far could not able to eat Quality Stroke Does the patient have a stroke diagnosis?: No VTE Prior VTE?: No VTE Risk Level:: Medical - moderate - high VTE Device Contraindication: Treatment Not Indicated VTE Drug Contraindication: N/A - Med Ordered
[2022-09-27] MEDS: Lidocaine 4 % Patch ADH..PATCH 1 PATCH TRANSDERMA (22:58)
[2022-09-27] MEDS: Ketorolac Tromethamine 15 MG/ML VIAL IVPUSH (23:00)
[2022-09-27] MEDS: Albuterol/Iprat 2.5/0.5MG 3 ML AMPUL.NEB INHALE (23:31)
[2022-09-28 02:29] VITALS: BP 117/61; PULSE 72; RESP 16; TEMP 36.1; O2SAT 98
--- NOTE | 2022-09-28 03:12 | PC.NURSE ---
Pt is alert and oriented, denies any SOB, LS dim, tolerating room air, pt c/o low back pain that's chronic, she said she has a pain pump on her LLQ but is off for a long time as she was not able to refill and has been using Ibuprofen, offered Tylenol but pt refused as it gives her itch, she was alos asking for some sleep med, Dr. Handy sewell made aware. Ketorolac IV push and Lidocaine patch was ordered and given, also pt c/o some bouts of coarse cough and mild wheeze, De. Castelan was paged again, Doneb neb and Guaiefenisin was ordered,RT came to give the neb, with relief, pt also verbalized relief from pain.
[2022-09-28] MEDS: Pantoprazole Sodium 40 MG/10 ML VIAL IVPUSH (05:12)
[2022-09-28 06:50] VITALS: BP 128/65; PULSE 76; RESP 18; TEMP 36.2; O2SAT 94
[2022-09-28] MEDS: Heparin Sodium,Porcine 5,000 UNIT/ML VIAL 5000 UNIT SUBCUT (09:28)
[2022-09-28] MEDS: Lidocaine 4 % Patch ADH..PATCH 1 PATCH TRANSDERMA (09:28)
[2022-09-28] MEDS: 0.9 % Sodium Chloride Flush 3 ML SYRINGE IVFLUSH (09:28)
[2022-09-28 11:09] VITALS: BP 130/65; PULSE 58; RESP 18; TEMP 36.2; O2SAT 98
[2022-09-28] MEDS: TiZANidine HCL 4 MG TABLET PO (11:39)
[2022-09-28] MEDS: Ibuprofen 600 MG TABLET PO (11:40)
[2022-09-28] MEDS: Mag&Al/Sim/Diphenhyd/Lidocaine 10 ML ORAL.SUSP PO (11:50)
[2022-09-28 12:34] VITALS: BP 130/65; PULSE 58; O2SAT 98
--- NOTE | 2022-09-28 12:35 | PHA.MEDREC ---
Pharmacy Consult ? Medication Reconciliation Pharmacy has completed the medication reconciliation. Called [facility] ([phone]) and spoke to on-call nurse (Stacie), which confirmed meds not listed on claim history.
--- NOTE | 2022-09-28 13:17 | MHC.CM.PN ---
Addendum entered by Etta Cheung 09/28/22 13:24: CM SPOKE TO DR HOUGH AT [facility], HE REPORTS THEY WILL PROVIDE THE SN/PT SERVICES FOR THE PT HE ALSO ASKS THAT HER DC SUMMARY BE FAXED TO [phone] ONCE AVAILABLE Original Note: PT CLEARED TO DC TODAY SHE WAS SEEN BY PT AND STR HAS BEEN RECOMMENDED CM MET WITH PT AND HER SON AND D-I-L WHO WERE AT [facility]EDSIDE PT REPORTS SHE IS NOT INTERESTED IN STR SHE SAYS SHE HAS HAD MOBILITY ISSUES SINCE LONG BEFORE THIS ADMISSION AND IS ABLE TO MANAGE FINE AT HOME SHE IS AGREEABLE TO HOME SERVICES CM HAS CALLED [facility] TWICE TO ATTEMPT TO ARRANGE HOME SERVICES AWAITING A SECOND CALL BACK PT WILL DC HOME TODAY WITH PT AND SN SERVICES, LIKELY TO BE PROVIDED BY [facility] FAMILY WILL TRANSPORT
--- NOTE | 2022-09-28 13:59 | P.F2F_ITS ---
Service Date Service Date: 09/28/22 Encounter Date of encounter: 09/28/22 Encounter: food impaction in the esophagus Reasons for Services Signs and symptoms assessed: monitor for dysphagia Reason for custodial: medication management, medication treatment, teach disease management and GI/ assessment Reason for physical therapy: home safety and mobility, therapeutic exercises, restore joint function, gait/transfer training, assess need for DME, ADL training, energy conservation and other MD Overseeing Care: Donny Thorpe Homebound: Leaving the home is medically contraindicated at this time without the asist of a device and/or another person due th the listed conditions above and below. Reason homebound: weakness related to hospital stay Homebound supporting statement: patient has multiple comorbidities, also weak post hospitalized stay, refuses to go to rehab, she need help with going to appointments . Certification: Based on the above findings, I certify that this patient is confined to the home and needs intermittent custodial care, physical therapy and/or speech therapy, or continues to need occupational therapy. The patient is under my care, and I have initiated the establishment of the plan of care. The patient will be followed by a physician who will periodically review the plan of care.
--- NOTE | 2022-09-28 14:05 | P.DS_ITS ---
DS: Providers Provider Date of Service: 09/28/22 Date of admission: 09/26/22 22:29 Primary care physician: Unknown Physician DS: Diagnosis Discharge Diagnosis (1) Dysphagia: Status: Acute (2) Food impaction of esophagus: Status: Acute DS: Summary Hospital Course Hospital Course: 77-year-old female with past medical history of chronic pain syndrome, who comes in from home with complaints of difficulty swallowing.? Patient reports that she had a corner of a burger about 2 days ago and after that she had nausea, vomiting, and difficulty swallowing.? Patient reports that she has had difficulty swallowing for a while both with liquids and and solids.? She denies no difficulty swallowing, has had chronic cough,.? She reports pain on swallowing at this time.? She denies any abdominal pain no urinary symptoms and no lower extremity edema.? On arrival to the ED patient hemodynamically stable with no significant abnormal vitals Labs reviewed unremarkable. Hopsital course: Patient came to hospital because of difficulty swallowing -seen by GI found to have food impaction in the esophagus on EGD: Which was relieved with the help of EGD intervention, barium swallow was done which shows mild dysmotility. discussed with the GI doctor has not patient can go home- continue diet , patient is tolerating diet. Mild pain/ soreness due to recent EGD in the throat area otherwise fine. Will give Magic mouthwash limited supply to help with above. Further management outpatient with GI, follow-up with Dr. Sommer outpatient. above management discussed the patient in detail length she understand and in agreement with the plan, time spent 50 minute. Also her family aware . Time Spent with Patient Time attestation: Total time spent providing and/or coordinating discharge services: Discharge coordination time: Greater than 30 minutes Quality: Safe Use of Opioids Does Pt have an Active Cancer Diagnosis on the Problem List?: No Quality: Stroke Does the patient have a stroke diagnosis?: No Physical Exam Vital Signs: Vital Signs: Last Vital Signs Temp 97.1 F 09/28/22 11:09 Pulse 58 09/28/22 12:34 Resp 18 09/28/22 11:09 BP 130/65 09/28/22 12:34 Pulse Ox 98 09/28/22 12:34 O2 Del Method 09/28/22 11:09 BMI result Body Mass Index 17.6 Appearance: Alert.? Oriented X3.? not in distress.? throat discomfort improving Significantly cvs: rrr, [id number] . res: clear to auscultation ,no rhonchii or wheezing abd: no rebound or guarding ,nt, bs present. ext pulses present , no cyanosis . neuro: axo3 , nonfocal. DS: Data Data Completed and Pending Pending studies at discharge: Pending at discharge 09/26/22 23:18 Surgical [PTH] Routine Additional Comments Additional comments: 09/26/22 09/26/22 09/26/22 ? 19:02 19:02 19:02 MCV ?89.4 ? ? MCH ?31.3 ? ? MCHC ?35.0 ? ? RDW ?12.8 ? ? Plt Count ?198 ? ? MPV ?10.3 ? ? Immature Gran % (Auto) ?0.3 ? ? Neut % (Auto) ?61.1 ? ? Lymph % (Auto) ?32.1 ? ? [place] % (Auto) ?4.8 ? ? Eos % (Auto) ?1.2 ? ? Baso % (Auto) ?0.5 ? ? Lymph # (Auto) ?1.9 ? ? [place] # (Auto) ?0.3 ? ? Eos # (Auto) ?0.1 ? ? Baso # (Auto) ?0.0 ? ? Abs Immat Gran (auto) ?0.02 ? ? Absolute Neuts (auto) ?3.6 ? ? Absolute Nucleated RBC ?0.000 ? ? Nucleated RBC % (auto) ?0.0 ? ? Anion Gap ? ?15 ? Estim Creat Clear Calc ? ?38.6 ? Estimated GFR ? ?> 60 ? Random Glucose ? ?112 ? Calcium ? ?11.4 H ? Total Bilirubin ? ?0.5 ? AST ? ?16 ? ALT ? ?14 ? Alkaline Phosphatase ? ?44 ? Total Protein ? ?6.9 ? Albumin ? ?4.1 ? COVID-19 ([facility]) ? ? ?Negative COVID-19 Clin Com ? ? ?See Note ? 09/27/22 09/27/22 ? 06:15 06:15 MCV ?90.6 ? MCH ?30.9 ? MCHC ?34.2 ? RDW ?12.9 ? Plt Count ?188 ? MPV ?10.8 ? Immature Gran % (Auto) ?0.4 ? Neut % (Auto) ?78.6 H ? Lymph % (Auto) ?19.5 L ? [place] % (Auto) ?1.1 L ? Eos % (Auto) ?0.2 ? Baso % (Auto) ?0.2 ? Lymph # (Auto) ?0.9 L ? [place] # (Auto) ?0.1 ? Eos # (Auto) ?0.0 ? Baso # (Auto) ?0.0 ? Abs Immat Gran (auto) ?0.02 ? Absolute Neuts (auto) ?3.6 ? Absolute Nucleated RBC ?0.000 ? Nucleated RBC % (auto) ?0.0 ? Anion Gap ? ?15 Estim Creat Clear Calc ? ?40.5 Estimated GFR ? ?> 60 Random Glucose ? ?131 H Calcium ? ?10.5 H D Total Bilirubin ? ? AST ? ? ALT ? ? Alkaline Phosphatase ? ? Total Protein ? ? Albumin ? ? COVID-19 ([facility]) ? ? COVID-19 Clin Com ? ? FL/FL barium swallow IMPRESSION: Mild dysmotility. Patency of barium to the stomach but unable to determine if there may be a stricture at the gastroesophageal junction. Discharge Plan Discharge Anticipated Discharge Date/Time: 09/28/22 09:58 Patient Disposition: Home Health Service Discharge Diagnosis: Food impaction in the esophagus. Referrals: Rocco Sommer MD [Physician] - 1 Week (follow up outpatient) Physician,Darcy Tan [Primary Care Provider] - 1 Week Discharge Medications: New Sore Throat (benzocaine-menth) 15-3.6 mg Lozenge 1 josette mucous membrane Q2H PRN (Reason: Sore Throat) Qty: 18 0RF omeprazole 20 mg capsule,delayed release(DR/EC) 20 mg PO DAILY Qty: 30 0RF dextromethorphan-guaifenesin 10-100 mg/5 mL Syrup 5 ml PO Q4H PRN (Reason: cough) Qty: 100 0RF Continued tizanidine 4 mg Tablet 4 mg PO DAILY pantoprazole 40 mg Tablet,Delayed Release (Dr/Ec) 40 mg PO DAILY@0630 albuterol sulfate [Ventolin HFA] 90 mcg/actuation Hfa Aerosol Inhaler 2 puff INHALATION Q6H bisacodyl 5 mg Tablet 5 mg PO DAILY PRN (Reason: Constipation) tizanidine 4 mg Capsule 8 mg PO BEDTIME pregabalin 50 mg Capsule 50 mg PO BID cetirizine [Zyrtec] 10 mg tablet 10 mg PO DAILY PRN (Reason: Allergy Symptoms) melatonin 5 mg tablet 5 mg PO BEDTIME PRN (Reason: Insomnia) ibuprofen 600 mg tablet 600 mg PO Q8H PRN (Reason: Pain) Discharge Orders: Discharge Order (Routine); Ordered 09/28/22 Ordered By: Nika Alberts Diet: Advance to usual diet Activity on Discharge: As tolerated Stand Alone Forms: Patient Portal Discharge page Care Plan Goals: Patient came to hospital because of difficulty swallowing -seen by GI found to have food impaction in the esophagus on EGD: Which was relieved with the help of EGD intervention, barium swallow was done which shows mild dysmotility. discussed with the GI doctor has not patient can go home- continue diet , patient is tolerating diet. Mild pain/ soreness due to recent EGD in the throat area otherwise fine. Will give Magic mouthwash limited supply to help with above. Further management outpatient with GI, follow-up with Dr. Sommer outpatient. Health Concerns: As above. Plan of Treatment: As above. Assessment: As above. Patient Instructions: Dysphagia (ED)
== END 2022-09-28 14:29 | disposition home health service (06) ==
LOC: HO.ED 20:34 → HO.SSS 20:52 → HO.S3 22:30
PROVIDERS: Internal Medicine Gastroenterology; Admitting Provider Internal Medicine; Emergency Provider Emergency Medicine; Visit Provider Internal Medicine
PROC: 0DJ08ZZ Inspection of Upper Intestinal Tract, Via Natural or Artificial Opening Endoscopic (ICD-10-PCS; CPT 43235; principal; 2022-09-26 21:30)
DX: T18.128A Food in esophagus causing other injury, initial encounter (principal); X58.XXXA Exposure to other specified factors, initial encounter; K22.2 Esophageal obstruction; R13.10 Dysphagia, unspecified; D13.0 Benign neoplasm of esophagus; G89.4 Chronic pain syndrome; F11.20 Opioid dependence, uncomplicated; F17.210 Nicotine dependence, cigarettes, uncomplicated; R63.6 Underweight; Z68.1 Body mass index [BMI] 19.9 or less, adult; Z20.822 Contact with and (suspected) exposure to COVID-19; Y93.89 Activity, other specified; Y92.019 Unspecified place in single-family (private) house as the place of occurrence of the external cause; Y99.9 Unspecified external cause status; Z79.899 Other long term (current) drug therapy; Z23 Encounter for immunization
CPT/HCPCS: 43239; 43247; 36415; 74220; 74230; 80048; 80053; 85025; 87635; 88305; 90471; 90686; 92611; 93005; 94640; 96372; 96374; 96375; 96376; 97162; 99218; 99285; J1100; J1610; J1885; J2405

== ENCOUNTER → 2022-10-28 14:49 | Outpatient (BNVA) | payer OTHER, MEDICAID, SELFPAY | PROVIDERS: Visit Provider Anesthesiology | DX: G89.4 Chronic pain syndrome (principal); T85.610A Breakdown (mechanical) of cranial or spinal infusion catheter, initial encounter | CPT/HCPCS: 99212 ==